=== PATIENT | male | born 1955 | race Caucasian/White ===

== ENCOUNTER → 2024-03-10 | Day surgery (SDC) | payer MEDICARE, OTHER ==
[~2024-03-10] MED LIST: Glycopyrrolate 0.2 MG/ML 1 ML VIAL ONE; Ketorolac 30 MG/ML VIAL ONE; Lidocaine PF 2% (20 MG/ML) 5 ML VIAL ONE; NS 10 ML IV ONE; Ondansetron 4 MG/2 ML VIAL ONE; Rocuronium 50 MG/5 ML Multi-Dose VIAL ONE; dexAMETHasone 10 MG/ML VIAL ONE; fentaNYL 50 MCG/ML 2 ML VIAL ONE
== END ==
LOC: SDCO 02-28 09:30
DX: K40.20 Bilateral inguinal hernia, without obstruction or gangrene, not specified as recurrent (principal)
CPT/HCPCS: C1781; J0690; J1100; J1885; J2405; J2704; J3010